=== PATIENT | male | born 1980 | race Caucasian/White ===

== ENCOUNTER 2025-03-09 16:47 | Emergency (ER) | payer MEDICAID ==
[~2025-03-09] VITALS: Ht 177.8 cm; Wt 86.0 kg
[2025-03-09 16:54] VITALS: O2SAT 98
[2025-03-09] MEDS: LORAZEPAM 2MG/ML UD SYRINGE IM SCH (17:11)
[2025-03-09] MEDS: HALOPERIDOL LACTATE 5MG/ML VIAL IM ONE (17:11)
[2025-03-09] MEDS: DIPHENHYDRAMINE 50MG/ML VIAL IM PRN (17:11)
[2025-03-09 18:01] VITALS: TEMP 36.7
[2025-03-09 18:48] LABS: BASOPHILS % 0.4 % (0.0-2.0); EOSINOPHILS % 0.5 % (0.0-5.0); HEMATOCRIT. 44.5 % (42.0-52.0); HEMOGLOBIN. 15.1 g/dL (14.0-18.0); LYMPHOCYTES % 14.0 % (20.0-50.0); MEAN PLATELET VOLUME 9.9 fl (7.4-10.4); MONOCYTES % 6.5 % (2.0-8.0); NEUTROPHILS % 78.6 % (40.0-76.0); PLATELET 193 x1000/uL (130-400); RED BLOOD CELL COUNT 5.15 mill/uL (4.7-6.1); RED CELL DISTRIBUTION WIDTH 13.6 % (11.6-14.6)
[2025-03-09 19:02] LABS: CREATININE 1.0 mg/dL (0.6-1.3)
[2025-03-09 19:03] LABS: ETHANOL BLOOD 182 mg/dL (<10); UREA NITROGEN BLOOD 7 mg/dL (9-23)
[2025-03-09 19:04] LABS: *AMPHETAMINES SCREEN URINE NEGATIVE (NEGATIVE); *BARBITURATES SCREEN URINE NEGATIVE (NEGATIVE); *BENZODIAZEPINES SCREEN URINE NEGATIVE (NEGATIVE); *COCAINE SCREEN URINE NEGATIVE (NEGATIVE); CANNABINOID URINE SCREEN NEGATIVE (NEGATIVE); ECSTASY MDMA SCREEN URINE NEGATIVE (NEGATIVE); METHADONE URINE SCREEN NEGATIVE (NEGATIVE); OPIATES URINE SCREEN NEGATIVE (NEGATIVE); PHENCYCLIDINE URINE SCREEN NEGATIVE (NEGATIVE)
[2025-03-09] MEDS: IBUPROFEN 600MG TABLET PO NR (19:35)
[2025-03-10 14:24] VITALS: BP 162/102; PULSE 84; RESP 16; O2SAT 97
[2025-03-10] MEDS ORDERED: QUETIAPINE FUMARATE 50MG TABLET PO SCH (21:00)
== END 2025-03-10 14:39 ==
LOC: EDBD 16:47 → ER 16:47
DX: R45.851 Suicidal ideations (principal); F20.9 Schizophrenia, unspecified; F31.9 Bipolar disorder, unspecified; Z20.822 Contact with and (suspected) exposure to COVID-19; Z79.899 Other long term (current) drug therapy; Z98.890 Other specified postprocedural states
CPT/HCPCS: 80305; 80048; 80307; 80329; 80320; 85025; 36415; 71101; 96372; 99285; 87426; J1200; J1630; J2060; G0480